=== PATIENT | female | born 2000 | race Caucasian/White ===

== ENCOUNTER → 2021-04-22 | Outpatient (CLI) | payer OTHER | LOC: M WHC 06:52 | PROVIDERS: ATTEND Nurse Practitioner Family | DX: N91.1 Secondary amenorrhea (principal) ==

== ENCOUNTER → 2021-04-29 | Outpatient (CLI) | payer OTHER ==
--- NOTE | 2021-04-30 10:03 | REP ---
INDICATION: AMENORRHEA, ABDOMINAL PAIN COMPARISON: None. TECHNIQUE: Transabdominal pelvic ultrasound. FINDINGS: Bladder is unremarkable and measures 10.6 x 7.6 x 9.4 cm. Normal anteverted uterus measures 8.2 x 2.7 x 4.5 cm. The endometrial complex measures 4.1 mm thickness. No discrete uterine or endometrial abnormalities are appreciated. Bilateral ovaries are normal in appearance. Right ovary measures 3.4 x 2.2 x 3.1 cm; left ovary measures 3.3 x 2.4 x 3.2 cm No pelvic fluid or adnexal mass lesion. IMPRESSION: Normal transabdominal pelvic ultrasound. <Electronically signed by Mor Rivera > 04/30/21 [id number]
== END ==
LOC: M WHC 10:01
PROVIDERS: ATTEND Nurse Practitioner Family
DX: N91.1 Secondary amenorrhea (principal)

== ENCOUNTER 2021-05-21 17:03 | Emergency (ER) | payer OTHER ==
[~2021-05-21] VITALS: Ht 160 cm; Wt 65.0 kg
[2021-05-21] MEDS ORDERED: BOOSTRIX/ADACEL VACCINE (DIPHTH/PERTUSS/ACELL/TETANUS) 0.5ML SYR IM ONE (19:20)
--- NOTE | 2021-05-21 20:17 | REP ---
INDICATION: dog bite unable to flex 2nd, 3rd, 4th fingers. COMPARISON: None. TECHNIQUE: Four views FINDINGS: The joint spaces are symmetric and relatively well maintained. There is no evidence of acute fracture or destructive osseous lesion. IMPRESSION: No osseous abnormality <Electronically signed by Ronald Hobbs > 05/21/212012
[2021-05-21] MEDS ORDERED: AUGM875T28 PO (20:36)
[2021-05-21] MEDS ORDERED: AUGMENTIN 875 MG TAB PO ONE (20:45)
[2021-05-21 20:58] VITALS: BP 128/87
== END 2021-05-21 21:02 | disposition home or self-care (01) ==
LOC: M ED 17:03
DX: S61.451A Open bite of right hand, initial encounter (principal); S61.452A Open bite of left hand, initial encounter; W54.0XXA Bitten by dog, initial encounter; Y92.099 Unspecified place in other non-institutional residence as the place of occurrence of the external cause; Y93.89 Activity, other specified; Y99.9 Unspecified external cause status

== ENCOUNTER → 2021-08-14 | Outpatient (CLI) | payer OTHER ==
[~2021-08-14] MED LIST: AUGM875T28 PO
--- NOTE | 2021-08-14 10:38 | REP ---
INDICATION: SACROCOCCYGEAL DISORDERS, NOT ELSEWHERE CLASSIFIED COMPARISON: None. TECHNIQUE: Three views of the sacrum and coccyx. FINDINGS: Bilateral sacroiliac joints are intact, symmetric and normal. Sacrum and coccyx appear normal in the frontal and lateral projections. IMPRESSION: Normal sacrococcygeal radiographs. <Electronically signed by Mor Rivera > 08/14/21 1037
== END ==
LOC: M LAB 10:09 → M RAD 10:09
PROVIDERS: ATTEND Nurse Practitioner Family
DX: M53.3 Sacrococcygeal disorders, not elsewhere classified (principal)